=== PATIENT | female | born 2005 | race Caucasian/White ===

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

== ENCOUNTER 2024-07-29 20:51 | Emergency (ER) | payer MEDICAID ==
[~2024-07-29] VITALS: Ht 170.2 cm; Wt 53.9 kg
[2024-07-29 21:02] VITALS: TEMP 99.4
[2024-07-29 21:52] LABS: BASOPHILS # (AUTO) 0.2 X10'3 (0-0.2); BASOPHILS % (AUTO) 1.9 % (0-1); EOSINOPHILS # (AUTO) 0.1 X10'3 (0-0.9); EOSINOPHILS % (AUTO) 0.4 % (0-6); HEMATOCRIT 42.5 % (35.0-45.0); HEMOGLOBIN 14.4 g/dl (12.0-16.0); LYMPHOCYTES # (AUTO) 1.4 X10'3 (1.1-4.8); LYMPHOCYTES % (AUTO) 10.5 % (21-51); MEAN CORPUSCULAR HEMOGLOBIN 31.4 PG (27.0-31.0); MEAN CORPUSCULAR HGB CONC 33.9 g/dL (33.0-36.5); MEAN CORPUSCULAR VOLUME 92.7 FL (78-98); MEAN PLATELET VOLUME 7.4 FL (7.4-10.4); MONOCYTES # (AUTO) 0.8 X10'3 (0-0.9); MONOCYTES % (AUTO) 6.2 % (2-12); NEUTROPHILS # (AUTO) 10.6 X10'3 (1.8-7.7); PLATELET COUNT 284 X10'3 (140-440); RED BLOOD COUNT 4.58 X10'6 (4.20-5.60); RED CELL DISTRIBUTION WIDTH 13.2 % (11.5-14.5); WHITE BLOOD COUNT 13.1 X10'3 (4.5-11.0)
[2024-07-29 21:59] LABS: ALANINE AMINOTRANSFERASE 20 U/L (12-78); ALBUMIN 4.1 G/DL (3.4-5.0); ALBUMIN/GLOBULIN RATIO 1.1 (1.1-1.5); ANION GAP 10 (8-16); ASPARTATE AMINO TRANSFERASE 15 U/L (10-37); BILIRUBIN,TOTAL 1.1 MG/DL (0.1-1.0); BLOOD UREA NITROGEN 8 MG/DL (7-18); BUN/CREATININE RATIO 10.1 (10.0-20.0); CALCIUM 9.5 MG/DL (8.5-10.1); CHLORIDE 102 MMOL/L (99-107); CREATININE 0.79 MG/DL (0.40-0.90); GLUCOSE 97 MG/DL (70-104); POTASSIUM 4.1 MMOL/L (3.5-5.1); SODIUM 136 MMOL/L (135-145); TOTAL CARBON DIOXIDE 24.2 MMOL/L (24-32); eCRCL 97 ML/MIN; eGFR > 90 ML/MIN
[2024-07-29 22:00] LABS: ALKALINE PHOSPHATASE 83 IU/L (20-180); LIPASE 28 U/L (16-77)
[2024-07-29] MEDS: normal saline 1000ml 1,000 ML IV ONE (23:51)
[2024-07-29] MEDS: acetaminophen 1,000mg/100ml IV 100 ML IV ONE (23:52)
[2024-07-29] MEDS: ketorolac trometh 15mg/ml vial 15 MG/ML ML IV ONE (23:52)
[2024-07-29] MEDS: ondansetron/PF 4mg/2ml inj IV ONE (23:52)
[2024-07-30] MEDS: proCHLORperazine 10 MG/2 ml inj IV PRN (00:17)
[2024-07-30 01:07] LABS: HCG SERUM QL NEGATIVE
[2024-07-30] MEDS ORDERED: ONDA-245 PO (01:21)
[2024-07-30 01:29] VITALS: BP 112/77; PULSE 87; RESP 19; O2SAT 99
== END 2024-07-30 01:31 | disposition home or self-care (01) ==
LOC: ER 20:52
DX: K52.9 Noninfective gastroenteritis and colitis, unspecified (principal); R51.9 Headache, unspecified
CPT/HCPCS: 36415; 80053; 83690; 84145; 84703; 85025; 96374; 96375; 99284; J0131; J0780; J1885; J2405; J7030; 96361

== ENCOUNTER 2024-10-03 15:21 | Emergency (ER) | payer MEDICAID ==
[~2024-10-03] VITALS: Ht 172.7 cm; Wt 58.2 kg
[~2024-10-03 15:21] MED LIST: ONDA-245 PO
[2024-10-03 15:29] VITALS: TEMP 99.4
[2024-10-03 16:05] LABS: BASOPHILS % (AUTO) 0.4 % (0-1); EOSINOPHILS # (AUTO) 0.1 X10'3 (0-0.9); EOSINOPHILS % (AUTO) 0.9 % (0-6); HEMATOCRIT 41.2 % (35.0-45.0); HEMOGLOBIN 13.8 g/dl (12.0-16.0); LYMPHOCYTES # (AUTO) 2.1 X10'3 (1.1-4.8); LYMPHOCYTES % (AUTO) 25.9 % (21-51); MEAN CORPUSCULAR HEMOGLOBIN 30.6 PG (27.0-31.0); MEAN CORPUSCULAR HGB CONC 33.5 g/dL (33.0-36.5); MEAN CORPUSCULAR VOLUME 91.2 FL (78-98); MEAN PLATELET VOLUME 7.2 FL (7.4-10.4); MONOCYTES # (AUTO) 0.6 X10'3 (0-0.9); MONOCYTES % (AUTO) 7.6 % (2-12); NEUTROPHILS # (AUTO) 5.4 X10'3 (1.8-7.7); NEUTROPHILS % (AUTO) 65.2 % (42-75); PLATELET COUNT 311 X10'3 (140-440); RED BLOOD COUNT 4.52 X10'6 (4.20-5.60); RED CELL DISTRIBUTION WIDTH 12.5 % (11.5-14.5); WHITE BLOOD COUNT 8.2 X10'3 (4.5-11.0)
[2024-10-03 16:11] LABS: ALANINE AMINOTRANSFERASE 17 U/L (12-78); ALBUMIN 4.2 G/DL (3.4-5.0); ALKALINE PHOSPHATASE 89 IU/L (20-180); ANION GAP 12 (8-16); ASPARTATE AMINO TRANSFERASE 16 U/L (10-37); BILIRUBIN,TOTAL 0.6 MG/DL (0.1-1.0); BLOOD UREA NITROGEN 12 MG/DL (7-18); BUN/CREATININE RATIO 13.3 (10.0-20.0); CALCIUM 9.8 MG/DL (8.5-10.1); CHLORIDE 103 MMOL/L (99-107); GLUCOSE 93 MG/DL (70-104); POTASSIUM 3.7 MMOL/L (3.5-5.1); SODIUM 138 MMOL/L (135-145); TOTAL CARBON DIOXIDE 23.2 MMOL/L (24-32); TOTAL PROTEIN 8.3 G/DL (6.4-8.2); eCRCL 92 ML/MIN; eGFR 80 ML/MIN
[2024-10-03 16:13] LABS: CREATINE KINASE 84 U/L (26-192); LIPASE 29 U/L (16-77)
[2024-10-03] MEDS: ondansetron 4mg rapidly disintigrating tab PO ONE (16:35)
[2024-10-03] MEDS: LORazepam 1 MG tablet PO ONE (16:35)
[2024-10-03] MEDS ORDERED: LORA-269 PO ×2 (17:24→18:28)
[2024-10-03 17:52] VITALS: BP 111/71; PULSE 99; RESP 16; O2SAT 99
== END 2024-10-03 17:30 | disposition home or self-care (01) ==
LOC: ER 15:22
DX: F45.8 Other somatoform disorders (principal); Z79.899 Other long term (current) drug therapy
CPT/HCPCS: 36415; 80053; 82550; 83690; 85025; 93005; 99284

== ENCOUNTER 2024-10-21 23:38 | Emergency (ER) | payer MEDICAID ==
[~2024-10-21] VITALS: Ht 172.7 cm; Wt 60.5 kg
[~2024-10-21 23:38] MED LIST changes: +LORA-269 PO
[2024-10-21 23:40] VITALS: BP 117/65; PULSE 85; RESP 18; TEMP 98.1; O2SAT 99
[2024-10-21] MEDS ORDERED: LORazepam 2 mg/ml vial IV ONE (23:50)
[2024-10-21] MEDS ORDERED: ondansetron/PF 4mg/2ml inj IV ONE (23:50)
[2024-10-21] MEDS ORDERED: normal saline 1000ml 1,000 ML IV ONE (23:50)
[2024-10-22 00:07] LABS: BASOPHILS # (AUTO) 0.1 X10'3 (0-0.2); BASOPHILS % (AUTO) 0.5 % (0-1); EOSINOPHILS # (AUTO) 0.2 X10'3 (0-0.9); EOSINOPHILS % (AUTO) 1.4 % (0-6); HEMATOCRIT 38.2 % (35.0-45.0); HEMOGLOBIN 12.9 g/dl (12.0-16.0); LYMPHOCYTES # (AUTO) 2.4 X10'3 (1.1-4.8); LYMPHOCYTES % (AUTO) 21.1 % (21-51); MEAN CORPUSCULAR HEMOGLOBIN 30.6 PG (27.0-31.0); MEAN CORPUSCULAR HGB CONC 33.6 g/dL (33.0-36.5); MEAN CORPUSCULAR VOLUME 90.9 FL (78-98); MONOCYTES # (AUTO) 1.1 X10'3 (0-0.9); MONOCYTES % (AUTO) 9.5 % (2-12); NEUTROPHILS # (AUTO) 7.7 X10'3 (1.8-7.7); NEUTROPHILS % (AUTO) 67.5 % (42-75); PLATELET COUNT 293 X10'3 (140-440); WHITE BLOOD COUNT 11.4 X10'3 (4.5-11.0)
[2024-10-22] MEDS: ondansetron 4mg rapidly disintigrating tab PO ONE (00:08)
[2024-10-22 00:16] LABS: HCG SERUM QL NEGATIVE
[2024-10-22 00:59] LABS: ALANINE AMINOTRANSFERASE 18 U/L (12-78); ALBUMIN/GLOBULIN RATIO 1.3 (1.1-1.5); ALKALINE PHOSPHATASE 84 IU/L (20-180); ANION GAP 11 (8-16); ASPARTATE AMINO TRANSFERASE 13 U/L (10-37); BILIRUBIN,TOTAL 0.5 MG/DL (0.1-1.0); BLOOD UREA NITROGEN 20 MG/DL (7-18); BUN/CREATININE RATIO 17.4 (10.0-20.0); CALCIUM 9.8 MG/DL (8.5-10.1); CHLORIDE 106 MMOL/L (99-107); CREATININE 1.15 MG/DL (0.40-0.90); GLUCOSE 97 MG/DL (70-104); LIPASE 27 U/L (16-77); POTASSIUM 4.1 MMOL/L (3.5-5.1); SODIUM 140 MMOL/L (135-145); TOTAL PROTEIN 7.2 G/DL (6.4-8.2); eCRCL 74 ML/MIN; eGFR 60 ML/MIN
[2024-10-22] MEDS ORDERED: ONDA-243 PO (01:28)
== END 2024-10-22 01:57 | disposition left against medical advice (07) ==
LOC: ER 23:39
DX: R10.84 Generalized abdominal pain (principal); R11.10 Vomiting, unspecified
CPT/HCPCS: 36415; 80053; 83690; 84703; 85025; 99283